=== PATIENT | female | born 1960 | race Hispanic/Latino ===

== ENCOUNTER 2022-11-09 12:57 | Emergency (ER) | payer OTHER ==
[2022-11-09] MEDS ORDERED: IBUPROFEN 600 MG TABLET PO ONE (14:30)
[2022-11-09] MEDS ORDERED: IBUPROFEN 600 MG TABLET ONE (14:36)
[2022-11-09] MEDS ORDERED: IBUP-2070 PO (15:29)
[2022-11-09 15:47] VITALS: BP 132/53
== END 2022-11-09 16:00 | disposition home or self-care (01) ==
LOC: EDH 12:57
DX: S60.221A Contusion of right hand, initial encounter (principal); S00.212A Abrasion of left eyelid and periocular area, initial encounter; V89.2XXA Person injured in unspecified motor-vehicle accident, traffic, initial encounter; Y93.I9 Activity, other involving external motion; Y92.488 Other paved roadways as the place of occurrence of the external cause; Y99.8 Other external cause status
CPT/HCPCS: 70450; 73130